=== PATIENT | male | born 1950 | race Caucasian/White ===

== ENCOUNTER 2016-09-21 08:18 | Day surgery (SDC) | payer MEDICARE, OTHER ==
--- NOTE | 2016-09-15 13:56 | HP ---
Chief Complaint - Chief Complaint Date of Service: 09/15/16 Chief Complaint: need a colonoscopy History of Present Illness: 66 year old male with no family history of colon cancer. He had a colonoscopy about 12 years ago. He believes it was negative at that time. No blood in his stools. Occasional hemorrhoids. BMs every two to three days. No weight loss, no abdominal complaints. GERD is well controlled with meds. Nonsmoker, non drinker. "Always have been a bit anemic. Take OTC iron tablets. Still tired going up stairs, but I had a work up two years ago and they found nothing" - Patient's Past Medical History Patient History - Medical: Anemia, Diabetes Type 2, GERD, Obesity, Other - dyspnea on exertion Patient History - Cardiac/Respiratory: Hypertension, Hyperlipidemia, Sleep Apnea - snores Patient History - Cancer: No Hx of Cancer Patient History - Surgical Procedures: Colonoscopy, EGD, Other - toe surgery - Family History Family History:: no untoward family reactions to anesthesia, no familial bleeding tendencies, no family history of clotting disorders - Family History Mother Family History - Medical: , Diabetes Type 2, Renal Failure Family History - Cardiac/Respiratory: Coronary Heart Disease - Social History Living Situations: spouse Abuse History: No History of abuse Psych History: No pertinent hx Does anyone smoke in the home?: No Have you smoked in the past 12 months: No Alcohol Use: none Drug Use: none - Immunizations Immunizations Up to Date: No Hx Pneumococcal Vaccination: No History of Influenza Vaccine: No Review Of Systems (GEN) - Review of Systems Generalized/Overall Review: Present: Malaise, Fatigue, Weight gain. Absent: Chills EENTM: Present: Nose Congestion, Other - snores. Absent: Blurred Vision, Ear Pain, Throat Swelling Respiratory: Present: Shortness of Breath, Wheezing Cardiac: Absent: Palpitations, Syncope Abdominal: Present: Constipation, Other - GERD. Absent: Nausea, Abdominal Pain , Diarrhea Genitourinary: Present: Nocturia. Absent: Urgency Musculoskeletal: Present: Back Pain. Absent: Muscle Pain Neurological: Absent: Headache, Depressed, Numbness, Tremors Skin: Present: Lesions. Absent: Rash Allergies/Adverse Reactions: Allergies Allergy/AdvReac Type Severity Reaction Status Date / Time Penicillins Allergy Verified 05/04/14 16:37 Sulfa (Sulfonamide Allergy Verified 05/04/14 16:38 Antibiotics) Home Medications: HOME MEDICATIONS Allopurinol [Zyloprim (Allopurinol)] 100 mg PO BID 05/04/14 [Last Taken Unknown] Aspirin [Aspirin Chewable] 81 mg PO DAILY 05/04/14 [Last Taken Unknown] Calcium Carbonate/Vitamin D3 [Calcium 600 + Vit D 400 Tablet] 1 each PO BID 02/07 [Last Taken Unknown] Colchicine [Colcrys] 0.6 mg PO DAILY 05/04/14 [Last Taken Unknown] Hydrochlorothiazide 50 mg PO DAILY 05/04/14 [Last Taken Unknown] Lisinopril 5 mg PO DAILY 05/04/14 [Last Taken Unknown] Metoprolol Tartrate 100 mg PO DAILY 05/04/14 [Last Taken Unknown] Ranitidine HCl [Zantac] 150 mg PO BID 05/04/14 [Last Taken Unknown] Simvastatin [Zocor] 40 mg PO HS 05/04/14 [Last Taken Unknown] metFORMIN HCL [Glucophage] 1,000 mg PO BIDWM 05/04/14 [Last Taken Unknown] Naproxen Sodium [Anaprox Ds] 550 mg PO BID #20 tablet 07/27/15 [Last Taken Unknown] Exam - Exam Vital Signs: Vital Signs - Last Taken Temp 37.0 C 09/15/16 Pulse 70 Resp 16 BP 140/80 07/27/15 09:26 Pulse Ox Constitutional: Present: Alert, Oriented x3, Cooperative, No distress, Middle aged, Obese ENT Exam: Present: hearing grossly normal, pharynx normal Eye Exam: bilateral eye: normal inspection Neck: Present: non-tender, full range of motion Respiratory: Present: chest non-tender, lungs clear, no respiratory distress, wheezing - right, inspiratory, No rales Cardiovascular/Chest: Present: normal peripheral pulses, regular rate, rhythm, no edema, no JVD, no murmur Abdomen: Present: Normal bowel sounds, soft, nontender, no hepatospenomegaly, obese /Rectal: Present: Exam deferred Extremity: Present: normal range of motion, non-tender, normal inspection, no pedal edema Skin Exam: Present: normal color, warm/dry, no cyanosis Neurologic: Present: no motor/sensory deficits, alert, normal mood/affect, oriented x 3. Absent: motor weakness, depressed affect Appearance: Present: appropriate appearance, appropriate insight, no memory impairment Eye contact: Present: cooperative, normal speech Thoughts: Present: normal thought pattern Diagnostic Studies: Recent labs reviewed. Mild elevation of Cr. Hgb 13.0 Assessment/Plan - Narrative Narrative: I discussed with the patient and his the [facility] for a colonoscopy. Discussed biopsy and/or polypectomy as needed. Discussed low likelihood of bleeding or perofration. Discussed the Prep. He would like to proceed next week. - Assessment/Plan (1) Diabetes Problem: Chronic Qualifiers: Diabetes mellitus type: type 2 Chronic kidney disease stage: stage 2 (mild ) (2) LORD (dyspnea on exertion) Assessment: He should discuss his persistent but chronic SOB and LORD and his wheezing is audible. Problem: Chronic (3) Screening for colon cancer Problem: Acute (4) Obesity Problem: Chronic Qualifiers: Obesity type: due to excess calories Obesity severity: unspecified obesity severity Qualified Code(s): E66.09 - Other obesity due to excess calories (5) Wheezing Problem: Acute
[~2016-09-21 08:18] MED LIST: RINGERS SOLUTION,LACTATED 1,000 ML IV PRN
--- OUTSIDE RECORDS SUMMARY | 2016-09-21 08:22 | XMS REPORT | Continuity of Care Document ---
:1950 Author Organization [facility] ([facility]) Address [address] [place] [address] Phone [phone] Care Team Providers Name Role Phone Unavailable Primary Care Provider Unavailable Source Comments This disclosure is being made pursuant to the Care Everywhere program, applicable federal and state laws, and may not contain all informaitonavailable regarding this patient.[facility] ([facility]) Active Allergies and Adverse Reactions Not on File Current Medications Not on file Active Problems Not on file Social History Tobacco Use Types Packs/Day Years Used Date Never Assessed Last Filed Vital Signs Vital Sign Reading Time Taken Blood Pressure - - Pulse - - Temperature - - Respiratory Rate - - Height - - Weight 120.398 kg (265 lb 6.9 oz) 09/15/2000 1:30 PM [employer] Body Mass Index - - Oxygen Saturation - - Plan of Care Health Maintenance Due Date Last Done Comments HCV Screening 1950 Hepatitis B Vaccine (1 of 3 - Primary Series) 1950 Tdap Vaccine 1962 Lipid Disorder Screening 1969 Td Vaccine 1969 Colonoscopy 06/18/2001 Prostate Cancer Screening 2001 Zoster Vaccine 2011 Influenza Vaccine: Seasonal (#1) 01/26/2016 Pneumococcal Vaccine (1 of 2 - PCV13) 2016 Results from Last 3 Months Not on file
[2016-09-21] MEDS ORDERED: RINGERS SOLUTION,LACTATED 1,000 ML IV ONE ×2 (09:17→10:23)
[2016-09-21] MEDS ORDERED: RINGERS SOLUTION,LACTATED 1,000 ML IV PRN (11:06)
--- NOTE | 2016-09-21 11:09 | OR ---
Operative Report - Dictated Report Narrative: DATE OF PROCEDURE: 09/21/2016 PREOPERATIVE DIAGNOSIS: #1 Screening colonoscopy POSTOPERATIVE DIAGNOSIS: #1 Screening colonoscopy #2 diverticulosis OPERATION: Colonoscopy SURGEON: Naun Gil M.D. [facility] ANESTHESIA : Chao Carter CRNA sedation INDICATIONS: This is 66 year old male who presents for a screening colonoscopy. I have discussed the risks, benefits, indications, and contraindications for colonoscopy with the possibility of biopsy and/or polypectomy. He understands, agrees, and wishes to proceed. He has undergone a SUPREP and has tolerated it well. PROCEDURE: The patient was brought to the operating theater and placed into the left lateral decubitus position. The patient underwent sedation per anesthesia , and a digital rectal exam was performed. This was noted to be unremarkable. The patient was noted to have minimal internal or external hemorrhoids. The Olympus video colonoscope was introduced and advanced into the rectum. The rectum was normal in appearance. The scope was then advanced through the sigmoid, where some diverticular disease was noted. The scope was then advanced to the cecum using standard reduction techniques. The appendiceal orifice was noted. The ileocecal valve was noted. The prep appeared to be excellent with a [place] prep score of 9. The scope was withdrawn slowly as the ascending, transverse, descending, and sigmoid colon were examined in a circumferential fashion. The scope was brought back into the rectum where it was retroflexed in the lower rectum was examined. The air was decompressed, and the scope was then removed. Withdrawal time was 11 minutes. POSTOPERATIVE CONDITION: The patient was awakened and taken to the ambulatory surgery center in good condition. No complications were encountered. FINDINGS: Negative other than diverticulosis Specimens: 0 EBL: 0 The findings were discussed with the patient and their family. I recommend a follow-up colonoscopy in 10 years for screening purposes.
[2016-09-21 12:33] VITALS: BP 151/84
== END 2016-09-21 08:19 | disposition home or self-care (01) ==
LOC: AMB 08:18
PROVIDERS: ATTEND Surgery
PROC: 0DJD8ZZ Inspection of Lower Intestinal Tract, Via Natural or Artificial Opening Endoscopic (ICD-10-PCS; principal; 2016-09-21 09:55)
DX: Z12.11 Encounter for screening for malignant neoplasm of colon (principal); K57.30 Diverticulosis of large intestine without perforation or abscess without bleeding; E11.9 Type 2 diabetes mellitus without complications; I10 Essential (primary) hypertension; E78.5 Hyperlipidemia, unspecified; K21.9 Gastro-esophageal reflux disease without esophagitis; D64.9 Anemia, unspecified; Z68.34 Body mass index [BMI] 34.0-34.9, adult

== ENCOUNTER 2017-04-23 09:30 | Emergency (ER) | payer MEDICARE, OTHER ==
[2017-04-23 09:40] VITALS: BP 143/92
--- NOTE | 2017-04-23 10:25 | ERNOTE ---
Medical Problem HPI - Narrative Date of Service: 04/23/17 - General Chief Complaint: General Assessment Time Seen by Provider: 04/23/17 09:55 - Immun/Allergies/Home Medications Immunizations: IMMUNIZATION HX Immunizations Up to Date Yes History of Influenza Vaccine Yes Hx Pneumococcal Vaccination Yes Allergies/Adverse Reactions: Allergies Penicillins Allergy (Intermediate, Verified 04/23/17 09:40) as a child; "went crazy" Sulfa (Sulfonamide Antibiotics) Allergy (Intermediate, Verified 04/23/17 09:40) as a child; "went crazy" Home Medications: HOME MEDICATIONS Allopurinol [Zyloprim (Allopurinol)] 100 mg PO BID 05/04/14 [Last Taken Unknown] Calcium Carbonate/Vitamin D3 [Calcium 600 + Vit D 400 Tablet] 1 each PO BID 02/07 [Last Taken Unknown] Hydrochlorothiazide 25 mg PO DAILY 05/04/14 [Last Taken Unknown] Lisinopril 5 mg PO DAILY 05/04/14 [Last Taken Unknown] Metoprolol Tartrate 100 mg PO DAILY 05/04/14 [Last Taken Unknown] Ranitidine HCl [Zantac] 150 mg PO BID 05/04/14 [Last Taken Unknown] Simvastatin [Zocor] 40 mg PO HS 05/04/14 [Last Taken Unknown] metFORMIN HCL [Glucophage] 500 mg PO BIDWM 05/04/14 [Last Taken Unknown] Albuterol Sulfate [Ventolin HFA] 2 puff IH Q6H 04/23/17 [Last Taken Unknown] Indomethacin [Indocin] 25 mg PO TID 04/23/17 [Last Taken Unknown] glipiZIDE [Glucotrol Xl] 2.5 mg PO DAILY 04/23/17 [Last Taken Unknown] - History of Present History Narrative: Pt. comes in with c/o that his pulse went from 96 BPM to 100BPM. Pt. denies any SOB, CP, NVD, palpitations, syncope, dizziness, recent illness or injury, but was just started on inhalers for COPD. Pt. is also on medications for his blood pressure and has noted occasional pulse rates in the 60s to 70s as well over the years. Pt. denies any symptoms but is just concerned that his heart rate may be too high. Review of Systems - Review of Systems Constitutional: Present: no symptoms reported. Absent: fever, chills, weakness , fatigue, malaise EYE: Present: no symptoms reported ENT: Present: no symptoms reported. Absent: nose pain, nose congestion, nasal drainage Respiratory: Present: no symptoms reported. Absent: shortness of breath, cough , wheezing Cardiology: Present: no symptoms reported. Absent: chest pain, palpitations, syncope, edema Gastrointestinal/Abdominal: Present: no symptoms reported. Absent: nausea, vomiting, diarrhea Genitourinary: Present: no symptoms reported Musculoskeletal: Present: no symptoms reported. Absent: back pain, joint pain Skin: Present: no symptoms reported Neurological: Present: no symptoms reported. Absent: headache, dizziness/light- headedness, numbness, tingling All Other Systems: All systems neg except as marked - Patient's Past Medical History Patient History - Medical: Anemia, Diabetes Type 2, GERD, Obesity Patient History - Cardiac/Respiratory: Hypertension, Hyperlipidemia, Sleep Apnea Patient History - Cancer: No Hx of Cancer Patient History - Surgical Procedures: Colonoscopy, EGD, Other Patient History - Other: None - Family History Mother Family History - Medical: , Diabetes Type 2, Renal Failure Family History - Cardiac/Respiratory: Coronary Heart Disease Family History - Cancer: No pertinent family hx - Social History Living Situations: home Abuse History: No History of abuse Psych History: No pertinent hx Smoking Status: Former smoker Alcohol Use: none Drug Use: none - Immunizations Immunizations Up to Date: Yes Hx Pneumococcal Vaccination: Yes History of Influenza Vaccine: Yes Physical Exam - Physical Exam General Appearance: Present: wd/wn, alert, no apparent distress Head Exam: Present: normal inspection, no evidence of injury Eye Exam: Normal inspection: bilateral, PERRL: bilateral, EOMI: bilateral Ears, Nose, Throat: Present: normal ENT inspection, normal pharynx Neck: Present: normal inspection, nontender. Absent: lymphadenopathy (R), lymphadenopathy (L) Respiratory: Present: no respiratory distress, normal breath sounds, no accessory muscle use, chest nontender, lungs clear. Absent: rales, rhonchi, wheezing Cardiovascular/Chest: Present: regular rate, rhythm, no murmur, normal peripheral pulses. Absent: tachycardia, bradycardia, irregularly irregular Gastrointestinal/Abdominal: Present: normal bowel sounds, nontender, nondistended, soft, no organomegaly Back Exam: Present: normal inspection, normal range of motion, no CVA tenderness , no vertebral tenderness Extremity Exam: Present: normal inspection, non-tender, normal range of motion, no edema Neurological Exam: Present: alert, oriented, normal mood/affect, no motor/ sensory deficits, temple marker II-XII nml as tested, normal cerebellar test Skin Exam: Present: normal color, warm/dry. Absent: pallor, skin rash ED Progress - Date and Time Seen: Date and Time: 04/23/17 11:02 Pt. without any symptomology or abnormal physical assessment but was unaware of pulse reactions to the medications he is taking for Blood pressure and COPD. Educated pt. that it is normal for your heart rate to vary from 60-100 and even a little higher after taking his inhalers. Pt. recently had full workup by PCP and is scheduled for PFT in a week. Educated pt. on COPD, HTN, diabetes and the testing and medications associated with this. - Vital Signs Patient's Vital Signs:: I have reviewed the patient's vital signs. Vital Signs: Vital Signs 04/23/17 09:35 Temperature 36.2 C L Pulse Rate 86 Respiratory 18 Rate Blood Pressure 143/92 O2 Sat by Pulse 100 Oximetry - Progress/Reassessment Chief Complaint: General Assessment Departure Clinical Impression: Sympathomimetics (adrenergics) causing adverse effect in therapeutic use Qualifiers: Encounter type: initial encounter Qualified Code(s): T44.905A - Adverse effect of unspecified drugs primarily affecting the autonomic nervous system, initial encounter - Departure Disposition: Home self-care Condition: Good Instructions: Metered Dose Inhaler (No Spacer Used), How to Take a Pulse Additional Instructions: Please follow up with primary provider in 2-3 days. Referrals: Sabrina Perez MD [Primary Care Provider] -
== END 2017-04-23 10:30 | disposition home or self-care (01) ==
LOC: ER 09:30
DX: I10 Essential (primary) hypertension (principal); T44.905A Adverse effect of unspecified drugs primarily affecting the autonomic nervous system, initial encounter; Z87.891 Personal history of nicotine dependence; E11.9 Type 2 diabetes mellitus without complications; E78.5 Hyperlipidemia, unspecified